=== PATIENT | male | born 1985 ===

== ENCOUNTER 2017-03-07 20:15 | Emergency (ER) | payer SELFPAY ==
[2017-03-07] MEDS ORDERED: CEFTRIAXONE SODIUM 250 MG VIAL ONE (20:32)
[2017-03-07] MEDS ORDERED: AZITHROMYCIN 250 MG TABLET ONE (20:33)
[2017-03-07 20:50] LABS: SPECIFIC GRAVITY 1.025 (1.001-1.030); URINE BILIRUBIN NEGATIVE (NEGATIVE); URINE BLOOD NEGATIVE (NEGATIVE); URINE GLUCOSE (UA) NEGATIVE (NEGATIVE); URINE LEUKOCYTE ESTERASE NEGATIVE (NEGATIVE); URINE NITRITE NEGATIVE (NEGATIVE); URINE PROTEIN NEGATIVE (NEGATIVE); URINE UROBILINOGEN NORMAL (0-1 mg/dl)
[2017-03-07 21:02] LABS: URINE APPEARANCE CLEAR; URINE COLOR YELLOW
[2017-03-09 13:38] LABS: CHLAMYDIA BD Negative (Negative); N.GONORRHOEAE BD Negative (Negative); SOURCE Urine (())
== END 2017-03-07 21:14 | disposition home or self-care (01) ==
LOC: ED 20:15
DX: R36.9 Urethral discharge, unspecified (principal)